=== PATIENT | female | born 1975 | race Caucasian/White ===

== ENCOUNTER 2018-05-05 05:47 | Day surgery (SDC) | payer OTHER, SELFPAY ==
[2018-04-30 16:13] LABS: Hematocrit 43.6 % (37-47); Hemoglobin 15.3 g/dl (12.0-15.0); Mean Corp Hgb Conc 35.1 g/gl (32-36); Mean Corpuscular Hgb 32.8 pg (27.0-32.0); Mean Corpuscular Volume 93.6 fL (81-99); Mean Platelet Vol. 8.9 fl (6.2-12.0); Platelet Count 245 K/mm3 (150-450); RBC Distribution Width CV 12.8 % (11.6-14.6); Red Blood Count 4.66 M/mm3 (4.2-5.4); White Blood Count 4.5 K/mm3 (4.4-11.0)
[2018-04-30 16:20] LABS: Scan Indicated on CBC? Y/N NO
[2018-04-30 16:29] LABS: Creatinine, Serum 1.03 mg/dL (0.55-1.02)
[2018-04-30 16:30] LABS: EST Glomerular Filtration Rate 63 mL/min (>60); Est Glom Filt Rate - Afr Amer 76 mL/min (>60)
[2018-04-30 16:35] LABS: International Normalized Ratio 0.9; Prothrombin Time (Protime)PT. 12.6 SECONDS (11.7-14.9)
[2018-05-01 09:35] LABS: Thyroid Stim Hormone (TSH) 2.09 uIU/mL (0.358-3.74)
[2018-05-05] VITALS (15 sets, daily range): BP systolic 93–147; BP diastolic 52–88; PULSE 54–79; RESP 12–18; TEMP 36.2–37; O2SAT 93–99; BMI 33.5
--- NOTE | 2018-05-05 06:28 | HP.PCM_ITS ---
History and Physical Date of Admission: 05/05/18 Surgical History and Physical Linda Kumar, a 42 year old female 2 0 0 0 2, presents for Robotic Assisted Vaginal Hysterectomy/ BS on May 05, 2018 at 7:30. -- Menorrhagia, Submucous Fibroids, Dysmenorrhea -- Known fibroids and heavy periods that are painful. Heavy menses which began months ago. Linda claims it started with menses getting worse It is located in the uterus. Severity is moderate; Associated signs and symptoms are cramping. UTERUS: retroverted 9.4 x 6.3 x 5.1cm. submucous fibroids measure .8 x 1.5 x 1.6cm and 1.9 x 2.3 x 2.2cm. MEDICATIONS HISTORY: Current medications prescribed by our practice are: 1. citalopram 40 mg tablet, 1 po daily 2. Diflucan 150 mg tablet, 1 now repeat in 3 to 4 days 3. Seasonique 0.15 mg-30 mcg (84)/10 mcg(7) tablets,3 month dose pack, 1 po daily Patient is also takin. levothyroxine 112 mcg tablet, 1 daily 2. Vitamin D2 50,000 unit capsule, weekly ALLERGIES: PCN, Rash, Penicillins and Rash Infections - Chicken pox Illnesses - Thyroid Cancer 05/17 Accidents - no injuries of consequence Hospitalizations - see surgery and Childbirth L side of thyroid removed; Review of Systems: GENERAL - Denies fever, or chills SKIN - Denies skin changes EYES - Denies visual changes EARS - Denies difficulty hearing NOSE - Denies nasal congestion or bleeding MOUTH - Denies sore throat or difficulty swallowing NECK - Denies pain or swelling RESPIRATORY - Denies shortness of breath or wheezing CARDIOVASCULAR - Denies palpitations or chest pain GASTROINTESTINAL - Denies nausea, vomiting, diarrhea, constipation GENITOURINARY - heavy bleeding and pain with menses, known fibroids MUSCULOSKELETAL - Denies joint or muscle pain NEUROLOGICAL - Denies localized numbness or weakness PSYCHIATRIC - Denies depression or anxiety ENDOCRINE - Denies heat or cold intolerance, weight loss or gain HEMATO-IMMUNOLOGIC - Denies excesive bleeding with cuts SOCIAL HISTORY: Alcohol Use - denies use Smoking - denies use Diet - no special diet Lifestyle - Exercise - regular Seat Belt Use - always Employer - [employer] Job Description - PSYCHIATRY PHYSICIAN Illicit Drug Use - denies use of street drugs Sexual Activity - Hours Worked - 37hrs/wk Spouse-Sig Other Name - LUCY KUMAR Spouse-Sig Other Occupation - regional owner operator truck driver Spouse-Sig Other Phone No - [phone] Children Name(s) - ' Kobe Durand ([facility]), ' Annia ([facility]) Control - Prior Tubal FAMILY HISTORY: Paternal history of Heart Disease. Mother: Dx'd age 46 and Breast cancer. Father: Rectal CA. Sister: Multiple Births. Maternal Grandmother: Brain cancer. MENSTRUAL HISTORY: LMP Known?- Approximate-Month KnownAmount/Duration - 6 days, Regularity - Regular, Frequency - 24 days, LMP - 04/30/18, Age Onset Menarche - 15 PAST PREGNANCIES: Total Pregnancies - 2; Full Term Pregnancies - 2; Premature - 0; Abortions, Induced - 0; Abortions, Spontaneous - 0; Ectopics - 0; Multiple Births - 0; Living Children - 2 SURGICAL HISTORY: 1. ' WISDOM TEETH ; - 2. 01/04/2003 ; Gayle Troy M.D. - large baby, failure to progress 3. Removal of L side thyroid, 05/17 ; Dr. Elfego Parkinson - Thyroid Ca 4. 07/29/2009 R C/S, BTO with Filshie Clips ; Dr. Gayle Troy - 5. R thyroidectomy, 11/18 ; - PHYSICAL EXAM BP- 130/84 Sitting, Right arm, regular cuff Temp- 98.3 Taken Orally Weight- 202.51987 lbs Height- 66 inch BMI:32.67 CONSTITUTIONAL - NAD, well nourished, and well developed HEENT - Normocephalic, PERRLA, EOMI NECK - no nuchal rigidity LUNGS - clear to auscultation CARDIAC - normal s1, normal s2, no s3 BREAST - no dominant masses, no tenderness, no axillary adenopathy, no nipple discharge and no skin changes ABDOMEN - no masses, no tenderness EXTREMITIES - No edema or calf tenderness NEUROLOGICAL - Cranial nerves II-XII grossly intact PSYCHIATRIC - A and O to time, place, person, mood and affect PAP SMEAR - deferred External Genitial Vagina - non-tender without lesions Urethra/Urethral Meatus - non-tender Bladder - non-tender Vagina - no palpable lesions Cervix - without cervical motion tenderness and has normal size and features without evident lesions Uterus - normal size, mobile and no tenderness Adnexa - no tenderness, no masses and mobile ASSESSMENT/PLAN: Excessive Bleeding, Submucous Fibroids and Dysmenorrhea. Pt with hypothyroidism, but on replacement. Discussed endometrial ablation, but with higher risk of failure due to presence of fibroid declines trial of endometrial ablation. Wants to proceed with Robotic hysterectomy (DVD given)/BS. Discussed RBAs and all questions answered.
--- NOTE | 2018-05-05 07:30 | HYST_PTH ---
PATIENT: JOELLEN KUMAR LOC: [facility] – [place] U#:[id number] AGE/SX: 42/F ROOM: RE05/05/[address]: Dr. Taj Doshi MD : [id number] BED: DIS: 05/06/2018 SPEC #: [id number] RECD: 05/05/18 12:46 STATUS: JOELLE KENNETH #: [id number] SAHARA: 05/05/18 07:[address]: Taj Doshi DEPT: SURGICAL PATHOLOGY RECD BY: Ortiz Nava ENTERED: 05/05/18 14:50 SP TYPE: HYSTERECT OTHR DR: Leelee Shah, MEDICAL RECORDS DIRECTOR-C Tissues: Uterus, NOS Procedures: Surgery Specimen Level V HEADER OPERATION: Robotic-assisted vaginal hysterectomy, bilateral salpingectomy PRE-OP DIAGNOSIS: Excessive bleeding, submucous fibroids, dysmenorrhea TISSUE SUBMITTED: Uterus, cervix, bilateral fallopian tubes MICROSCOPIC DIAGNOSIS Uterus, cervix, bilateral fallopian tubes, vaginal hysterectomy and bilateral salpingectomy: Cervix - mild chronic cystic cervicitis. Endometrium - inactive endometrium. - Focal changes consistent with exogenous hormone effects. Myometrium - intramural and subserosal leiomyomas (largest measuring 1 cm in greatest dimension). Bilateral fallopian tubes - no pathologic diagnosis. Paratubal cyst (3.5 cm in greatest dimension). SJ:keven 05/06/18 MICROSCOPIC DESCRIPTION Slides are reviewed. GROSS DESCRIPTION Received in fixative is one container labeled with the patient's name and designated uterus, cervix, bilateral fallopian tubes. The specimen consists of a hysterectomy specimen consisting of uterus with cervix and detached bilateral fallopian tubes. The uterus with cervix weighs 131 gm and measures 10.5 x 7 x 5.5 cm. The serosal surface is focally ragged. Two subserosal nodules are also noted. The ectocervical mucosa is unremarkable. The external os is circular in contour. The endocervical canal measures 3.5 cm in length and the endocervical mucosa is faulkner, glistening and unremarkable. The endocervical canal is filled with mucoid material. The triangular endometrial cavity measures 5 cm in length and up to 3 cm in width. The endometrium is faulkner, glistening without any mass lesion and measures 0.1 cm in thickness. Sections of the uterine wall reveal one intramural mass and two subserosal nodular masses. The largest mass is intramural in location and measures 1 cm in greatest dimension. The uninvolved uterine wall measures up to 2.5 cm in thickness. The detached fallopian tubes are not identified as right or left. One of the fallopian tube measures 5.5 cm in length and 0.5 cm in diameter. The fimbrial end is identified. Sections reveal unremarkable cut surface. The second fallopian tube is similar in appearance to first one and measures 6 cm in length and 0.5 cm in diameter. A paratubal cyst is noted adjacent to the second fallopian tube and measures 3.5 x 2.5 x 2 cm. It is filled with clear fluid. No papillations are identified. Blocker Hand sections are submitted in ten cassettes as follows: 1 - anterior cervix, 2 - posterior cervix, 3 & 4 - anterior uterine wall, 5 & 6 - posterior uterine wall, 7 - nodular masses, 8 & 9 - bilateral fallopian tubes with each cassette containing one fallopian tube, 10??paratubal cyst. / MARYANN:keven 05/05/18 TC:1 CPT: 87789
--- NOTE | 2018-05-05 07:36 | PCM.OPRPT ---
Report of Operation Date of Procedure: 05/05/18 Pre-Operative Diagnosis: Submucous Fibroids, Menorrhagia, Dysmenorrhea Post-Operative Diagnosis: Submucous Fibroids, Menorrhagia, Dysmenorrhea Surgery/Procedure Performed:: Robotic Assisted Vaginal Hysterectomy and Bilateral Salpingectomy Description of Surgical Findings:: 8 cm size uterus with normal-appearing fallopian tubes and ovaries. paying teller: Giuliana To Type of Anesthesia:: General - Endotracheal Anesthesiologist: Dennis Motta Specimen's removed: Uterus and bilateral fallopian tubes sent to pathology Drains: Chavez to straight drain Estimated Blood Loss (mL): Minimal Fluids Replaced: Crystalloid Description of Procedure: Surgeon: Taj Doshi MD, FACOG Indication: This is a 42 year old patient who has been having problems with submucous fibroids, menorrhagia, and dysmenorrhea. Conservative measures have not been helpful. The patient has been counseled regarding the risks, benefits and alternatives of this procedure including the possibility of bleeding, infection, and injury to surrounding structures such as bowel bladder and all questions were answered. She understands that is BSO is needed that she will need to be on HRT for an indefinite period of time. Procedure: Pt taken to the operating room where after induction of general anesthesia the patient was prepped and draped in the usual sterile fashion and placed on a non-slip Huggy-u-vac device. Trendendelenburg test was satisfactory. Bladder was drained of urine with a Chavez catheter which was left in place. Anterior cervix grasped and cervix was dilated to about 3-4 mm. Uterus sounded to 8 cms. 0-Vicryl suture was placed at the 3:00 and 9:00 position of the cervix. A small V-care device was then placed in the uterus to allow uterine manipulation and attention was turned to the laparoscopic portion of the procedure. Ropivocaine 0.5% was injected approximately 2-3 cm superior to the umbilicus and an 8 mm robotic camera port was introduced directly with intraperitoneal placement confirmed with insufflation. 8 mm robotic side ports were introduced under direct visualization approximately 11 cm lateral and 2 cm inferior to the umbilical port. A 5 mm left upper quadrant port was introduced and airseal insufflation with CO2 was started. The above findings were noted. Robot was docked without difficulty and attention turned to the robotic portion of the procedure. Approximately 30 cc of Ropivicaine was used. Bilateral infundibulocal ligaments/mesosalpinx were ligated with 35 bee bipolar coagulation to the level of the round ligament. The posterior aspect of the cervix was identified and then opened for about 1 cm using 25 watt monopolar cautery identifying the V-care device which had been placed vaginally. Bladder flap was opened and divided to the level of the round ligaments using monopolar cautery. Progressive bites were then ligated on each side of the cervix with 35 bee bipolar cautery to the uterine arteries. The anterior vaginal mucosa was then entered and cervix circumscribed with monopolar cautery. Uterus and attached ovaries and tubes were then removed through the vagina. There were also noted to be 4 Filshie clips in the posterior cul-de-sac which were removed. Vaginal cuff was closed first with 0-Vicryl Dannielle stitches placed at each angle followed by closure of the mid-cuff with 0-Monocryl V-lock suture in two layers. Pelvis was copiously irrigated with saline and the right and left ureter were noted to peristalse. Robot was undocked and trocars were removed with as much gas as possible. Incisions were closed with 4-0 Monocryl subcuticular sutures and incisions covered with steri-strips and opsite dressing. The patient tolerated the procedure well and was taken to the recovery room in satisfactory condition. Sponge, instruments and needle counts were all correct. There were no apparent complications of the surgery. Cefotan 2 gms IV was given prior to the procedure. Grafts/Implants Used: None - Complications None - Admit VTE Documentation VTE Present on Admission: Yes VTE Mechan Device Prophylaxis: SCD's VTE Pharm Prophylaxis ordered?: Yes
--- NOTE | 2018-05-05 07:40 | OP.PCM_ITS ---
Report of Operation Date of Procedure: 05/05/18 Pre-Operative Diagnosis: Submucous Fibroids, Menorrhagia, Dysmenorrhea Post-Operative Diagnosis: Submucous Fibroids, Menorrhagia, Dysmenorrhea Surgery/Procedure Performed:: Robotic Assisted Vaginal Hysterectomy and Bilateral Salpingectomy Description of Surgical Findings:: 8 cm size uterus with normal-appearing fallopian tubes and ovaries. warehouse checker: Giuliana To Type of Anesthesia:: General - Endotracheal Anesthesiologist: Dennis Motta Specimen's removed: Uterus and bilateral fallopian tubes sent to pathology Drains: Chavez to straight drain Estimated Blood Loss (mL): Minimal Fluids Replaced: Crystalloid Description of Procedure: Surgeon: Taj Doshi MD, FACOG Indication: This is a 42 year old patient who has been having problems with submucous fibroids, menorrhagia, and dysmenorrhea. Conservative measures have not been helpful. The patient has been counseled regarding the risks, benefits and alternatives of this procedure including the possibility of bleeding, infec tion, and injury to surrounding structures such as bowel bladder and all questions were answered. She understands that is BSO is needed that she will need to be on HRT for an indefinite period of time. Procedure: Pt taken to the operating room where after induction of general anesthesia the patient was prepped and draped in the usual sterile fashion and placed on a non-slip Huggy-u-vac device. Trendendelenburg test was satisfactory. Bladder was drained of urine with a Chavez catheter which was left in place. Anterior cervix grasped and cervix was dilated to about 3-4 mm. Uterus sounded to 8 cms. 0-Vicryl suture was placed at the 3:00 and 9:00 position of the cervix. A small V-care device was then placed in the uterus to allow uterine manipulation and attention was turned to the laparoscopic portion of the procedure. Ropivocaine 0.5% was injected approximately 2-3 cm superior to the umbilicus and an 8 mm robotic camera port was introduced directly with intraperitoneal plac ement confirmed with insufflation. 8 mm robotic side ports were introduced under direct visualization approximately 11 cm lateral and 2 cm inferior to the umbilical port. A 5 mm left upper quadrant port was introduced and airseal insufflation with CO2 was started. The above findings were noted. Robot was docked without difficulty and attention turned to the robotic portion of the procedure. Approximately 30 cc of Ropivicaine was used. Bilateral infundibulocal ligaments/mesosalpinx were ligated with 35 bee bipolar coagulation to the level of the round ligament. The posterior aspect of the cervix was identified and then opened for about 1 cm using 25 watt monopolar cautery identifying the V-care device which had been placed vaginally. Bladder flap was opened and divided to the level of the round ligaments using monopolar cautery. Progressive bites were then ligated on each side of the cervix with 35 bee bipolar cautery to the uterine arteries. The anterior vaginal mucosa was then entered and cervix circumscribed with monopolar cautery. Uterus and attached ovaries and tubes were then removed through the vagina. There were also noted to be 4 Filshie clips in the posterior cul-de-sac which were removed. Vaginal cuff was closed first with 0-Vicryl Dannielle stitches placed at each angle followed by closure of the mid-cuff with 0-Monocryl V-lock suture in two layers. Pelvis was copiously irrigated with saline and the right and left ureter were noted to peristalse. Robot was undocked and trocars were removed with as much gas as possible. Incisions were closed with 4-0 Monocryl subcuticular sutures and incisions covered with steri-strips and opsite dressing. The patient tolerated the procedure well and was taken to the recovery room in satisfactory condition. Sponge, instruments and needle counts were all correct. There were no apparent complications of the surgery. Cefotan 2 gms IV was given prior to the procedure. Grafts/Implants Used: None - Complications None - Admit VTE Documentation VTE Present on Admission: Yes VTE Mechan Device Prophylaxis: SCD's VTE Pharm Prophylaxis ordered?: Yes
--- NOTE | 2018-05-05 07:41 | DCINST_ITS ---
Discharge Diet: No Restrictions Discharge Activity: Return to Normal Activity, May Not Drive - while taking narcotic pain medications., May Shower May resume sexual activity in: 6-8 weeks Call your doctor if your incision/area has: Continuous Slow Oozing, Sudden Increased Bleeding, Increased Pain/ Swelling, Increased Redness, Foul Smelling Discharge Call your doctor if you observe: Fever of 101 or Higher, Inability to urinate, Inability to have a bowel movement, Using more than one pad per hour Allergies/Adverse Reactions: Allergies Penicillins Allergy (Verified 04/30/18 10:04) Rash Medications to take at Discharge Cholecalciferol (Vitamin D3) [Vitamin D] 50,000 unit PO QWEEK 12/27/15 Citalopram [Celexa] 40 mg PO QHS 12/27/15 Cyanocobalamin (Vitamin B-12) [Vitamin B-12] 1,000 mcg PO DAILY 12/27/15 Levothyroxine [Synthroid] 112 mcg PO DAILY 04/30/18 Magnesium Oxide [Magnesium] 500 mg PO DAILY 04/30/18 Docusate Sodium [Colace] 100 mg PO BID PRN PRN #60 cap 05/05/18 Oxycodone [Oxyir] 5 mg PO Q6H PRN PRN 7 Days #20 tab 05/05/18 The following prescriptions were given: Oxycodone [Oxyir] 5 mg PO Q6H PRN PRN 7 Days #20 tab PRN Reason: Severe Pain (-12/18) Docusate Sodium [Colace] 100 mg PO BID PRN PRN #60 cap PRN Reason: Constipation Orders to be completed after discharge: Thyroid Stim Hormone (TSH) Time Frame: 04/30/18, Location: Laboratory Primary Care Physician: Leelee Jeffrey NP-C [Primary Care Provider] - Test Results: Test results from this visit will be discussed in further detail at your follow- up appointment, if applicable. Please Follow Up With: Taj Doshi MD When: 2-3 weeks
[2018-05-05] MEDS: Ropivacaine 0.5% 30 ML Vial (08:00)
[2018-05-05] MEDS: Dextrose 5%-Lactated Ringers 1,000 ML 150 ML IV ×2 (11:45→16:11)
[2018-05-05] MEDS: Ketorolac 30 MG/ML Syringe IV ×2 (12:46→18:35)
[2018-05-05] MEDS: 0.9% NaCl Peripheral Flush Adult/Peds IV ×2 (12:47→14:14)
[2018-05-05] MEDS: HYDROmorphone 0.5 MG/0.5 ML SYRINGE IV ×2 (14:14→21:48)
[2018-05-05] MEDS: Acetaminophen 500 MG Tablet 1000 MG PO (16:26)
[2018-05-05] MEDS: Enoxaparin 30 MG/0.3 ML Syringe SC (18:22)
[2018-05-05] MEDS: oxyCODONE 5 MG Tablet PO (18:23)
[2018-05-05] MEDS: Citalopram 40 MG TABLET PO (21:48)
[2018-05-06] MEDS: Dextrose 5%-Lactated Ringers 1,000 ML 150 ML IV (01:24)
[2018-05-06] MEDS: Ketorolac 30 MG/ML Syringe IV ×2 (01:24→06:12)
[2018-05-06] MEDS: oxyCODONE 5 MG Tablet PO ×3 (01:24→11:53)
[2018-05-06 01:26] VITALS: BP 109/55; PULSE 68; RESP 16; TEMP 37; O2SAT 97
[2018-05-06] MEDS: Levothyroxine 112 MCG Tablet PO (06:12)
[2018-05-06 06:17] VITALS: BP 119/70; PULSE 70; RESP 22; TEMP 36.5; O2SAT 97
[2018-05-06 06:18] LABS: Hematocrit 38.9 % (37-47); Hemoglobin 13.5 g/dl (12.0-15.0); Mean Corp Hgb Conc 34.7 g/gl (32-36); Mean Corpuscular Volume 95.1 fL (81-99); Mean Platelet Vol. 9.1 fl (6.2-12.0); Platelet Count 198 K/mm3 (150-450); RBC Distribution Width CV 12.5 % (11.6-14.6); RBC Distribution Width SD 42.1 fl (35.1-43.9); Red Blood Count 4.09 M/mm3 (4.2-5.4); White Blood Count 9.6 K/mm3 (4.4-11.0)
[2018-05-06 06:22] LABS: Scan Indicated on CBC? Y/N NO
[2018-05-06 06:53] LABS: Creatinine, Serum 0.91 mg/dL (0.55-1.02); EST Glomerular Filtration Rate 73 mL/min (>60); Est Glom Filt Rate - Afr Amer 88 mL/min (>60); Estimated Creatinine Clearance 76.93 ml/min
--- NOTE | 2018-05-06 08:40 | PCM.PN.OB ---
Subjective: Patient without complaints. Tolerating diet well. Denies flatus. Voiding on her own. Minimal vaginal bleeding. - Physical Exam Vital Signs Temp Pulse Resp BP Pulse Ox 97.7 F L 70 22 H 119/70 97 05/06/18 06:17 05/06/18 06:17 05/06/18 06:17 05/06/18 06:17 05/06/18 06:17 Oxygen Flow Rate (L/min) 4 Oxygen Delivery Method Room Air Weight: 207 lb 10.807 oz Body Mass Index (BMI) 33.5 Intake and Output for Last 24 Hours 05/04/18 05/05/18 05/06/18 23:59 23:59 23:59 Intake Total 5230 / 5230 635 / 635 Output Total 2695 / 2695 450 / 450 Balance 2535 / 2535 185 / 185 Laboratory Tests Past 24 Hrs 05/06/18 05/06/18 05:40 05:40 WBC 9.6 RBC 4.09 L Hgb 13.5 Hct 38.9 MCV 95.1 MCH 33.0 H MCHC 34.7 RDW 12.5 RDW Differential 42.1 Plt Count 198 MPV 9.1 Creatinine 0.91 Estim Creat Clear Calc 76.93 Est GFR (MDRD) Af Amer 88 Est GFR (MDRD) Non-Af 73 Wounds are clean, dry, intact. Good urine output. Hemoglobin and creatinine okay. Medical Necessity - Tobacco Use Smoking Status: Never smoker Assessment/Plan Doing well status post operative day #1 robotic assisted vaginal hysterectomy and bilateral salpingectomy. Will release to home with routine instructions.
[2018-05-06 10:29] VITALS: BP 112/67; PULSE 75; RESP 16; TEMP 36.9; O2SAT 97
[2018-05-06] MEDS: Ketorolac 10 MG Tablet PO (10:34)
[2018-05-06 11:48] VITALS: O2SAT 94
[2018-05-06] MEDS: Acetaminophen 500 MG Tablet 1000 MG PO (11:53)
== END 2018-05-06 13:32 | disposition home or self-care (01) ==
LOC: SDC 05:48 → AC 05:49 → MS2 08:32
PROVIDERS: Family Provider Nurse Practitioner; PCP Nurse Practitioner; Referring Provider Obstetrics & Gynecology; Visit Provider Obstetrics & Gynecology
PROC: 0UT90ZZ Resection of Uterus, Open Approach (ICD-10-PCS; CPT 58552; principal; 2018-05-05 07:10)
DX: D25.0 Submucous leiomyoma of uterus (principal); D25.1 Intramural leiomyoma of uterus; N72 Inflammatory disease of cervix uteri; N83.8 Other noninflammatory disorders of ovary, fallopian tube and broad ligament; N92.0 Excessive and frequent menstruation with regular cycle; N94.6 Dysmenorrhea, unspecified; F32.9 Major depressive disorder, single episode, unspecified; E89.0 Postprocedural hypothyroidism; Z85.850 Personal history of malignant neoplasm of thyroid; Z79.899 Other long term (current) drug therapy
CPT/HCPCS: 00840; 58552; S2900; 36415; 82565; 84443; 85027; 85610; 85730; 86850; 86900; 88307; J7120; A4216; J2405; J3490

== ENCOUNTER → 2018-06-06 12:58 | Outpatient (CLI) | payer OTHER, SELFPAY ==
[2018-05-05 12:33] VITALS: BMI 33.5
[2018-06-06 14:03] LABS: Vitamin D,25 Hydroxy 51.5 ng/mL (29.95-100.01)
[2018-06-06 14:07] LABS: Anion Gap 6 (5-15); BUN 10 mg/dL (7-18); BUN/Creat Ratio 10.7 RATIO (10-20); Calcium,Total 8.3 mg/dL (8.5-10.1); Chloride 109 mmol/L (98-107); Creatinine, Serum 0.93 mg/dL (0.55-1.02); EST Glomerular Filtration Rate 71 mL/min (>60); Est Glom Filt Rate - Afr Amer 85 mL/min (>60); Glucose 88 mg/dL (74-106); Potassium 3.9 mmol/L (3.5-5.1); Sodium Level 141 mmol/L (136-145); Thyroid Stim Hormone (TSH) 0.06 uIU/mL (0.358-3.74)
[2018-06-10 13:10] LABS: Anti-Thyroglobulin AB < 1.0 IU/mL (0.0-0.9); Thyroglobulin, Serum Qt. 1.6 ng/mL (1.5-38.5)
== END ==
PROVIDERS: Family Provider Nurse Practitioner; PCP Nurse Practitioner; Referring Provider Internal Medicine Endocrinology, Diabetes & Metabolism; Visit Provider Internal Medicine Endocrinology, Diabetes & Metabolism
DX: C73 Malignant neoplasm of thyroid gland (principal); E55.9 Vitamin D deficiency, unspecified
CPT/HCPCS: 36415; 80048; 82306; 84432; 84443; 86800

== ENCOUNTER → 2019-01-01 11:42 | Outpatient (CLI) | payer OTHER, SELFPAY ==
[2018-05-05 12:33] VITALS: BMI 33.5
[2019-01-01 13:59] LABS: Hemoglobin A1c 4.8 % (4.2-6.3)
== END ==
PROVIDERS: Family Provider Nurse Practitioner; PCP Nurse Practitioner; Visit Provider Obstetrics & Gynecology
DX: Z83.3 Family history of diabetes mellitus (principal)
CPT/HCPCS: 36415; 83036

== ENCOUNTER → 2020-05-31 | Outpatient (CLI) | payer OTHER, SELFPAY ==
[2018-05-05 12:33] VITALS: BMI 33.5
[2020-05-31 10:04] LABS: D-Dimer Quantitative (DVT/PE) 0.32 FEU/ug/m (0.27-0.49)
[2020-05-31 10:09] LABS: Thyroid Stim Hormone (TSH) 0.58 uIU/mL (0.358-3.74)
== END | disposition home or self-care (01) ==
LOC: LABSPEC 09:42
PROVIDERS: PCP Nurse Practitioner; Referring Provider Nurse Practitioner; Visit Provider Nurse Practitioner
DX: R00.2 Palpitations (principal); R06.02 Shortness of breath; R07.89 Other chest pain
CPT/HCPCS: 84443; 85379

== ENCOUNTER → 2020-07-14 11:49 | Outpatient (CLI) | payer OTHER, SELFPAY ==
[2018-05-05 12:33] VITALS: BMI 33.5
--- NOTE | 2020-07-14 11:52 | BI_ITS ---
MAMMOGRAPHY - BILATERAL SCREENING REASON FOR EXAM: Female, 45 years old. Routine annual screening examination. PERTINENT HISTORY: Mother with breast cancer. TECHNIQUE: Digital bilateral breast arpit (3D mammographic acquisition) in the CC and MLO projections. 2-D mediolateral oblique (MLO) and craniocaudad (CC) views of both breasts were obtained. CAD: Full Field Digital Mammography with Computer Added Detection was performed. COMPARISON: Comparison is made with prior study dated 03/21/2007. FINDINGS: Breast Composition: The breasts are heterogeneously dense, which may obscure small masses. There are no dominant masses or suspicious calcifications. Stable small benign appearing bilateral axillary lymph nodes. No other significant abnormalities are identified. There has been no significant change since the prior study. BI/SCRN MAMM (CAD)W/ARPIT BILAT IMPRESSION: Stable bilateral screening mammogram. Yearly follow-up mammogram recommended. (A) ASSESSMENT CATEGORY: BIRADS Category 2: Benign. A letter regarding these results will be sent to the patient by the facility within 30 days. Approximately 10% of breast cancers are not detected by mammography. A normal mammogram should not delay biopsy of a clinically suspicious abnormality. [id number] Electronically Signed: Oliver Carey MD at 13:21 EDT , Service support ,
== END ==
PROVIDERS: PCP Nurse Practitioner; Referring Provider Obstetrics & Gynecology; Visit Provider Obstetrics & Gynecology
DX: Z12.31 Encounter for screening mammogram for malignant neoplasm of breast (principal); Z80.3 Family history of malignant neoplasm of breast
CPT/HCPCS: 77063; 77067